=== PATIENT | female | born 1955 | race African-American/Black ===

== ENCOUNTER → 2020-04-19 | Outpatient (CLI) | payer OTHER ==
[2016-10-03 22:15] VITALS: BP 202/86
[~2020-04-19] MED LIST: BECL10PO MC; ESTR1TAB44 PO; RAMI5CAP50 PO; SITA1TAB7 PO; SULF1TAB24 PO; THYR90TA PO; TRIA15CR TP; VENTOLIN HFA18 GM IH
--- NOTE | 2020-04-19 13:51 | CARD ---
MR#: [id number] Date of Study: 04/19/2020 Ordering Physician: MONIKA KO, Referring Physician: MONIKA KO, Tech: Marjorie Bobo APPROVED REPORT EXAM: Two-dimensional and M-mode echocardiogram with Doppler and color Doppler. Other Information Quality : AverageHR: 60bpm INDICATION Palpitations RISK FACTORS Hypertension Diabetes 2D DIMENSIONS Left Atrium(2D)3.6 (1.6-4.0cm)IVSd1.0 (0.7-1.1cm) Aortic Root(2D)2.5 (2.0-3.7cm)LVDd4.7 (3.9-5.9cm) LVOT Diameter1.8 (1.8-2.4cm)PWd0.9 (0.7-1.1cm) LVDs3.0 (2.5-4.0cm)FS (%) 36.9 % SV67.6 mlLVEF(%)66.8 (>50%) Aortic Valve AoV Peak Marcello.169.3cm/sAoV VTI37.6cm AO Peak GR.11.5mmHgLVOT Peak Marcello.100.5cm/s LVOT VTI 25.69cmAO Mean GR.7mmHg MERRICK (VMAX)1.29nr8FXI (VTI)1.79cm2 Mitral Valve MV E Odjjlhgq24.7cm/sMV DECEL [id number] MV A Vzimvhtu30.5cm/sMV IFN37as E/A Ratio1.5MVA (PHT)3.52cm2 TDI E/Lateral E'9.4E/Medial E'7.3 Pulmonary Valve PV Peak Ccldasfg98.6cm/sPV Peak Grad.4mmHg Tricuspid Valve TR P. Hfzogggk999do/sRAP PSVMHJUH0bdWt TR Peak Gr.20hvDsWGXZ89dzIx Pulmonary Vein S1 Vmlacmij20.1cm/sD2 Rjqfownt74.9cm/s PVa [id number] LEFT VENTRICLE The left ventricle is normal size. There is normal left ventricular wall thickness. The left ventricu lar systolic function is normal. The Ejection Fraction is 55-60%. There is normal LV segmental wall m otion. RIGHT VENTRICLE The right ventricle is normal size. There is normal right ventricular wall thickness. The right ventr icular systolic function is normal. ATRIA The left atrium is borderline dilated. The right atrium size is normal. 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 AORTIC VALVE The aortic valve is thickened but opens well. Doppler and Color Flow revealed no significant aortic r egurgitation. There is no significant aortic valvular stenosis. MITRAL VALVE The mitral valve is normal in structure and function. There is no evidence of mitral valve prolapse. There is no mitral valve stenosis. Doppler and Color-flow revealed trace mitral regurgitation. TRICUSPID VALVE The tricuspid valve is normal in structure and function. Doppler and Color Flow revealed trace tricus pid regurgitation with an estimated PAP of 31 mmHg. There is no tricuspid valve stenosis. PULMONIC VALVE The pulmonic valve is not well visualized. Doppler and Color Flow revealed trace to mild pulmonic meka vular regurgitation. GREAT VESSELS The aortic root is normal in size. The ascending aorta is normal in size. The IVC is normal in size a nd collapses >50% with inspiration. PERICARDIAL EFFUSION There is no evidence of significant pericardial effusion. Critical Notification Critical Value: No <Conclusion> The left ventricular systolic function is normal. The Ejection Fraction is 55-60%. There is normal LV segmental wall motion. Trace mitral regurgitation. Trace tricuspid regurgitation with an estimated PAP of 31 mmHg. There is no evidence of significant pericardial effusion. Signed by : Monika Ko, Electronically Approved : 04/19/2020 13:51:09
== END | disposition home or self-care (01) ==
LOC: ECHO 12:32
PROVIDERS: ATTEND Internal Medicine Cardiovascular Disease
DX: I37.1 Nonrheumatic pulmonary valve insufficiency (principal)
CPT/HCPCS: 93306